=== PATIENT | male | born 1990 | race American Indian/Alaskan Native ===

== ENCOUNTER 2021-02-01 12:53 | Emergency (ER) | payer OTHER ==
[~2021-02-01] VITALS: Ht 190.5 cm; Wt 114.5 kg
[~2021-02-01 12:53] MED LIST: CITALOPRAM HBR20 MG PO; PROVENTIL HFA6.7 GM INH; TYLENOL325 MG PO; VITAMIN D50000 UNI1 PO
== END 2021-02-01 19:07 | disposition home or self-care (01) ==
LOC: ED 12:53
DX: F15.90 Other stimulant use, unspecified, uncomplicated (principal); E86.0 Dehydration; F17.200 Nicotine dependence, unspecified, uncomplicated
CPT/HCPCS: 80053; 81001; 84484; 85025; 99285; J7030; J7121

== ENCOUNTER 2021-04-08 13:23 | Emergency (ER) | payer OTHER ==
[~2021-04-08] VITALS: Ht 190.5 cm; Wt 113.6 kg
== END 2021-04-08 15:13 | disposition home or self-care (01) ==
LOC: ED 13:23
DX: L98.9 Disorder of the skin and subcutaneous tissue, unspecified (principal); F17.200 Nicotine dependence, unspecified, uncomplicated
CPT/HCPCS: 99283

== ENCOUNTER 2021-04-12 17:19 | Emergency (ER) | payer OTHER ==
[~2021-04-12] VITALS: Ht 188 cm; Wt 113.4 kg
--- OUTSIDE RECORDS SUMMARY | 2021-04-12 17:26 | XMS ---
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 Jus has no Care Guidelines for this patient. Jaxon VISIT COUNT (12 MO.) 3 [facility]. TOTAL 3 NOTE: Visits indicate total known visits. ED/C VISIT TRACKING (12 MO.) 04/12/2021 17:19 [facility] [place] TYPE: Emergency COMPLAINT: - FEET PAIN 04/08/2021 13:24 [facility] [place] TYPE: Emergency COMPLAINT: - FOOT PAIN DIAGNOSES: - Nicotine dependence, unspecified, uncomplicated - Rash and other nonspecific skin eruption - Disorder of the skin and subcutaneous tissue, unspecified 02/01/2021 12:53 [facility] [place] TYPE: Emergency COMPLAINT: - FALL DIAGNOSES: - Dehydration - Nicotine dependence, unspecified, uncomplicated - Other stimulant use, unspecified, uncomplicated - Altered mental status, unspecified INPATIENT VISIT TRACKING (12 MO.) No inpatient visits to display in this time frame [email or web address]
== END 2021-04-12 18:58 | disposition home or self-care (01) ==
LOC: ED 17:19
DX: L98.9 Disorder of the skin and subcutaneous tissue, unspecified (principal); F17.200 Nicotine dependence, unspecified, uncomplicated
CPT/HCPCS: 99283